=== PATIENT | female | born 1975 | race Caucasian/White ===

== ENCOUNTER 2019-09-26 11:31 | Emergency (ER) | payer SELFPAY ==
[~2019-09-26] VITALS: Ht 157.5 cm; Wt 65.9 kg
[2019-09-26 11:35] VITALS: TEMP 98.3
[2019-09-26 12:19] LABS: BASO % 0.4 % (0.0-2.0); EOS % 0.1 % (0-4.0); GRAN # 8.7 (1.4-6.5); GRAN % 85.6 % (42.2-75.2); HEMATOCRIT 39.5 % (37.0-47.0); HEMOGLOBIN 13.4 g/dl (12.5-16.0); LYMPH # 1.1 (1.2-3.4); LYMPH % 10.4 % (20.0-51.0); MEAN CELL VOLUME 96 fl (80.0-100.0); MEAN CORPUSCULAR HEMOGLOBIN 32 pg (27.0-31.0); MEAN CORPUSCULAR HGB CONC 34 g/dl (33.0-37.0); MEAN PLATELET VOLUME 10.4 fl (7.4-10.4); MONO # 0.3 (0.1-0.6); MONO % 3.2 % (1.7-9.3); PLATELET COUNT 151 K/mm3 (130-400); RED BLOOD COUNT 4.13 M/mm3 (4.10-5.30); REDCELL DISTRIBUTION WIDTH-CV 12.8 % (11.5-14.5)
[2019-09-26 12:24] LABS: INR 1.1 (0.8-3.0); PROTHROMBIN TIME 12.7 SECONDS (9.7-12.8)
[2019-09-26 12:30] LABS: ACETONE,SERUM NEGATIVE
[2019-09-26 12:31] LABS: ALANINE AMINOTRANSFERASE 40 U/L (9-52); ALBUMIN 4.7 gm/dL (3.5-5.0); ALKALINE PHOSPHATASE 111 U/L (50-136); ANION GAP 18 mmol/L (7-16); AST,SGOT 58 U/L (15-37); BILIRUBIN,TOTAL 3.1 mg/dL (0.0-1.0); BLOOD UREA NITROGEN 12 mg/dL (7-17); CARBON DIOXIDE 21 mmol/L (22-30); CHLORIDE 95 mmol/L (98-107); CREATININE, serum 0.65 (0.52-1.25); GLUCOSE 116 mg/dL (74-106); LIPASE 188 U/L (23-300); MAGNESIUM 1.2 mg/dL (1.6-2.3); PHOSPHOROUS 3.3 mg/dL (2.5-4.5); POTASSIUM 3.9 mmol/L (3.4-5.0); SODIUM 133 mmol/L (137-145)
[2019-09-26 12:32] LABS: ALCOHOL(ethanol),MEDICAL < 10 mg/dL; C-REACTIVE PROTEIN < 0.5 mg/dL (0.0-0.9)
[2019-09-26 12:40] LABS: TROPONIN-I < 0.012 ng/mL (0.000-0.035)
[2019-09-26 12:41] LABS: PARTIAL THROMBOPLASTIN TIME 27.1 SECONDS (26.0-37.0)
[2019-09-26 14:41] VITALS: BP 124/86; PULSE 103
[2019-09-26] MEDS ORDERED: ATIVAN 1MG T1 MG/TAB PO (14:49)
== END 2019-09-26 15:15 | disposition home or self-care (01) ==
LOC: COL.ER 11:31
PROVIDERS: Emergency Medicine
DX: F41.9 Anxiety disorder, unspecified (principal); E86.0 Dehydration
CPT/HCPCS: J2060; J2405; J3475; J7030; J7121